=== PATIENT | male | born 1960 | race African-American/Black ===

== ENCOUNTER 2018-06-06 18:02 | Observation (INO) | payer BC ==
[2018-06-06 18:44] LABS: Hemoglobin 15.6 g/dL (14.0-18.0); Mean Corpuscular HGB CONC 32.9 g/dL (32.0-36.0); Mean Corpuscular Hemoglobin 28.5 pg (27.0-31.0); Mean Corpuscular Volume 86.6 fL (78.0-98.0); Mean Platelet Volume 7.5 fL (7.4-10.4); Platelet Count 220 thou/uL (130-400); RBC Distribution Width 12.4 % (11.5-14.5); Red Blood Cell (RBC) Count 5.46 mill/uL (4.70-6.10); White Blood Cell (WBC) Count 4.8 thou/uL (4.8-10.8)
[2018-06-06 19:02] LABS: Eosinophils 1 % (0-10); Lymphocytes 71 % (21-51); MDiff Complete? YES; Monocytes 2 % (0-10); Neutrophil 25 % (42-75); Platelet Morphology Comment Appears Adequate; Reactive Lymphocytes 1 % (0-10)
[2018-06-06 19:03] LABS: ALT (SGPT) 38 U/L (8-55); AST (SGOT) 23 U/L (5-34); Albumin 4.2 g/dL (3.5-5.0); Alkaline Phosphatase 63 U/L (40-150); Anion Gap 11 mmol/L (10-20); BUN (Urea Nitrogen) 17 mg/dL (8.4-25.7); Bilirubin, Total 0.5 mg/dL (0.2-1.2); Calc. Creatinine Clearance 0 mL/min (70-130); Calcium 9.7 mg/dL (7.8-10.44); Carbon Dioxide 29 mmol/L (22-29); Chloride 103 mmol/L (98-107); Estimated GFR-MDRD 71; Globulin 2.7 g/dL (2.4-3.5); Glucose 109 mg/dL (70-105); Potassium 3.7 mmol/L (3.5-5.1); Protein, Total 6.9 g/dL (6.0-8.3); Sodium 139 mmol/L (136-145)
--- NOTE | 2018-06-06 19:10 | RAD ---
CHEST ONE VIEW 06/06/18 HISTORY: Chest pain. COMPARISON: Radiograph 08/18/10. FINDINGS: The lungs are clear. No pneumothorax or effusion. The cardiac silhouette and mediastinal contours are within normal limits. IMPRESSION: No acute intrathoracic abnormality. New ACDF hardware incompletely evaluated from 2010. POS: HOME
[2018-06-06] MEDS ORDERED: Aspirin Chewable 81 MG TAB ONE (21:11)
[2018-06-06] MEDS ORDERED: Nitroglycerin 0.4 MG TAB 1 EACH ONE (21:11)
[2018-06-06] MEDS ORDERED: Acetaminophen 325 MG TAB ONE (21:32)
[2018-06-06 22:38] LABS: Troponin I 0.014 ng/mL (< 0.028)
[2018-06-07 00:15] VITALS: BMI 42.3
[2018-06-07] MEDS ORDERED: HYDROcodone/Acetaminophen 5/325 mg Tablet PO PRN (00:58)
[2018-06-07] MEDS ORDERED: Senokot S 8.6-50 MG TAB PO PRN (00:58)
[2018-06-07] MEDS ORDERED: Acetaminophen 325 MG TAB PO PRN (00:58)
[2018-06-07 01:31] LABS: Troponin I Less than 0.010 ng/mL (< 0.028)
[2018-06-07] MEDS ORDERED: Dextrose 50% Abboject 50 ML SYRINGE SLOW IVP PRN (01:43)
[2018-06-07] MEDS ORDERED: Dextrose 5% in Water 1,000 ML IV PRN (01:43)
[2018-06-07] MEDS ORDERED: HumaLOG 300 UNITS/3 ML VIAL SC PRN (01:43)
[2018-06-07 04:02] VITALS: BP 132/97; TEMP 98
[2018-06-07 04:18] LABS: Anion Gap 14 mmol/L (10-20); BUN (Urea Nitrogen) 16 mg/dL (8.4-25.7); Calc. Creatinine Clearance 128 mL/min (70-130); Calcium 9.2 mg/dL (7.8-10.44); Carbon Dioxide 23 mmol/L (22-29); Cardiac Risk 3.9 (Less than 4.5); Chloride 106 mmol/L (98-107); Cholesterol 185 mg/dl (< 200 Desired); Estimated GFR-MDRD 80; Glucose 176 mg/dL (70-105); HDL Cholesterol 47 mg/dL (>60 Neg Risk); LDL Cholesterol, Calculated 106 mg/dL; Potassium 3.5 mmol/L (3.5-5.1); Sodium 139 mmol/L (136-145); Triglycerides 159 mg/dL (Less than 150)
[2018-06-07 04:27] LABS: Troponin I Less than 0.010 ng/mL (< 0.028)
[2018-06-07 04:36] LABS: Thyroid Stimulating Hormone 2.489 uIU/mL (0.35-4.94)
[2018-06-07 04:41] LABS: Free T4 (Free Thyroxine) 0.93 ng/dL (0.70-1.48)
--- NOTE | 2018-06-07 05:07 | HP ---
PRIMARY CARE PROVIDER: Angely Blair PA-C. CHIEF COMPLAINT: Chest pain. HISTORY OF PRESENT ILLNESS: Mr. Ledezma is a very pleasant 57-year-old male who presented to the emergency room on 06/06/2018, with left-sided chest pain, diaphoresis, shortness of breath, and a headache. The patient reports that chest pain is a sharp shooting pain, substernal that started when he was trying to get his kids off the bus. He reports that he got very diaphoretic as he was getting off the bus and walking to the office. He reports that he had a heart catheterization in [place] several years ago, but is unsure of those results. The patient reports that he is under quite a bit of stress and this is similar to the episode that he had several years ago when he was also in a lot of stress. The patient has a pertinent past medical history of hypertension, diabetes, hyperlipidemia. He will be admitted to the observation unit for further risk stratification. PAST MEDICAL HISTORY: Diabetes, hypertension, hyperlipidemia. PAST SURGICAL HISTORY: Had an ACDF, has also had an appendectomy. PSYCHIATRIC HISTORY: None. SOCIAL HISTORY: The patient denies any alcohol or drug use. Denies any smoking history. He lives at home with his family. FAMILY HISTORY: The patient endorses significant family history of cardiac disease and diabetes. The patient is unsure of the exact diagnosis of the cardiac issues. REVIEW OF SYSTEMS: CONSTITUTIONAL: The patient denies chills, fever. EYES: Denies any eye pain or vision changes. ENT: Denies sore throat or rhinorrhea. CARDIOVASCULAR: Does report chest pain, diaphoresis. RESPIRATORY: Reports shortness of breath. Denies cough. GI: Denies abdominal pain, nausea, vomiting, constipation, or diarrhea. MUSCULOSKELETAL: Denies any injuries, trauma. SKIN: Denies any rashes or skin changes. NEUROLOGIC: Does endorse a headache. Denies any numbness, tingling. Does report that he has been" off-balance" lately. ENDOCRINE: Negative review of systems. Note, all other reviews of review of systems are negative unless mentioned in the HPI. PHYSICAL EXAMINATION: VITAL SIGNS: Blood pressure is 142/96, pulse is 67, respirations 13, temperature is 98.5. The patient is 95% on room air. CONSTITUTIONAL: The patient appears nontoxic. He is alert and oriented to person, place, and time. He is in no apparent distress. HEAD: Atraumatic and normocephalic. Eyes, pupils are equally round and reactive to light. Extraocular muscles are intact. ENT, mouth exam is normal. Mucous membranes are moist. NECK: Normal range of motion. Trachea is midline. RESPIRATORY: Chest breath sounds are clear. Chest movement is symmetrical. CARDIOVASCULAR: Heart regular rate and rhythm. Heart sounds are normal. ABDOMEN: Nontender on palpation. Bowel sounds are heard. BACK: Normal range of motion, normal inspection. No tenderness. EXTREMITIES: Upper extremity normal inspection. Radial pulses equal bilaterally. Lower extremity, normal inspection, normal range of motion. Pedal pulses equal bilaterally. No edema is noted. NEUROLOGIC: The patient is oriented to person, place, and time. Speech is normal. SKIN: Warm, dry and normal in color. ALLERGIES: NONE. CURRENT MEDICATIONS: Per ER system; 1. Trulicity q weekly 2. Amlodipine 5 mg daily. 3. Invokana 100 mg. 4. Metformin 500 mg p.o. b.i.d. 5. Lansoprazole 15 mg dose, unknown. Hydrochlorothiazide 25 mg p.o. q.a.m. 6. Tizanidine 4 mg p.r.n. 7. Synthroid 137 mcg daily. IMAGING: EKG in the emergency room shows normal sinus rhythm, beats per minute 79, prolonged QT. T-waves are normal. LABORATORY DATA: Pertinent lab results, troponin x2 undetectable. Sodium is 139, potassium 3.7, chloride 103, carbon dioxide is 29, gap is 11, BUN is 17, creatinine is 1.27, estimated GFR is 71, glucose 109, calcium is 9.7. Liver enzymes are unremarkable. White blood cell count is 4.8, hemoglobin is 15.6, hematocrit is 47.3, platelet count is 220. Chest x-ray shows no acute intrathoracic abnormality next. ASSESSMENT/PLAN: 1. Chest pain. We will obtain serial troponins. We will order a stress test. We will check lipids for further risk stratification. 2. Hypertension. We will continue home medications. We will trend. We add p.r.n. medications as needed. 3. Diabetes before break fast and at bedtime Accu-Cheks. We will restart home medications. We will trend. We will add p.r.n. sliding scale as needed. 4. Hyperlipidemia. Continue home medications. We will check lipids with the morning run. 5. Deep venous thrombosis, gastrointestinal prophylaxis will be started. 6. Hospital course is dependent on clinical findings. Job ID: [id number] [facility] CENTERVandana
[2018-06-07] MEDS ORDERED: Levothyroxine Sodium 125 MCG TAB PO SCH (06:00)
[2018-06-07 06:17] LABS: #Eosinphils 0.1 thou/uL (0.0-0.7); #Monocytes 0.4 thou/uL (0.11-0.59); #Neutrophils 1.9 thou/uL (1.40-6.50); %Basophils 0.6 % (0.0-1.0); %Eosinophils 2.7 % (0.0-10.0); %Lymphocytes 46.2 % (21.0-51.0); %Monocytes 8.2 % (0.0-10.0); %Neutrophils 42.3 % (42.0-75.0); Mean Corpuscular HGB CONC 32.3 g/dL (32.0-36.0); Mean Corpuscular Hemoglobin 28.8 pg (27.0-31.0); Mean Corpuscular Volume 89.3 fL (78.0-98.0); Mean Platelet Volume 7.5 fL (7.4-10.4); Platelet Count 201 thou/uL (130-400); RBC Distribution Width 12.5 % (11.5-14.5); Red Blood Cell (RBC) Count 4.87 mill/uL (4.70-6.10); White Blood Cell (WBC) Count 4.4 thou/uL (4.8-10.8)
[2018-06-07] MEDS ORDERED: Famotidine 20 MG TAB ONE (08:32)
[2018-06-07] MEDS ORDERED: Enoxaparin Sodium 40 MG/0.4 ML SYRINGE ONE (08:32)
[2018-06-07] MEDS ORDERED: Famotidine 20 MG TAB PO SCH (09:00)
[2018-06-07] MEDS ORDERED: DorzolamidE/Timolol 2%/0.5% Ophth Soln 10 ml Bottle EA EYE SCH (09:00)
[2018-06-07] MEDS ORDERED: Enoxaparin Sodium 40 MG/0.4 ML SYRINGE SC SCH (09:00)
[2018-06-07] MEDS ORDERED: Hydrochlorothiazide 25 MG TAB PO SCH (09:00)
[2018-06-07] MEDS ORDERED: Brimonidine Tartrate 0.2% Ophth Soln 5 ml Bottle EA EYE SCH (09:00)
--- NOTE | 2018-06-07 11:09 | NM ---
CARDIAC SPECT: HISTORY: Chest pain, hypertension, diabetes, dyslipidemia PROTOCOL: Single isotope, stress only. RADIOPHARMACEUTICAL: 31 mCi technetium 99m sestamibi injected intravenously STRESS: Exercise stress monitored and interpreted by [Fer], Nurse practitioner. FINDINGS: Homogeneous tracer distribution is seen in the myocardial segments on the poststress images. Gated SPECT LVEF: 56% Wall motion exam: Normal IMPRESSION: Normal poststress myocardial perfusion scan.
[2018-06-07] MEDS ORDERED: metFORMIN XR 500 MG TAB PO SCH (17:00)
[2018-06-07] MEDS ORDERED: Latanoprost 0.005% Ophth Soln 2.5 ml Bottle EA EYE SCH (21:00)
--- NOTE | 2018-06-08 07:07 | DIS ---
DATE OF ADMISSION: 06/06/2018 DATE OF DISCHARGE: 06/07/2018 ALLERGIES: NO KNOWN DRUG ALLERGIES. CHIEF COMPLAINT: Chest pain. FINAL DIAGNOSES: 1. Sharp substernal chest pain, with associated diaphoresis, resolved, nuclear stress test negative for reversible ischemia. 2. Type [address] Kidd. 3. Hypertension. 4. Hyperlipidemia. PROCEDURES PERFORMED: None. LABORATORY RESULTS: White blood cell count 4.4, hemoglobin 14, hematocrit 43.5, MCV 89.3, and platelet count was 201. Sodium 139, potassium 3.5, chloride 106, BUN 16, creatinine 1.15, estimated GFR 80, and glucose 176. Liver function tests within normal limits. Troponin was negative x3. Triglycerides 159, cholesterol 185, LDL 106, and HDL 47. Free T4 of 0.93, free T3 of 2.63, and TSH 2.4890. IMAGING RESULTS: Chest x-ray, no acute intrathoracic abnormality, new ACDF hardware incompletely evaluated from 2010. Cardiac SPECT revealed homogeneous tracer distribution in the myocardial segments on the post-stress images. Left ventricular ejection fraction noted at 56%, impression was normal post-stress myocardial perfusion scan. VITAL SIGNS: Blood pressure 132/97, O2 saturation is 94% on room air, pulse is 72, respiration 13, and temperature 98. HOSPITAL COURSE: The patient is a pleasant 57-year-old -[place] male with past medical history significant for hypertension, hyperlipidemia, and type [address] Dr[address] Kidd, who presented to the ER after experiencing acute onset of left-sided chest pain that occurred when he was picking his child up from the bus. He describes it as sharp and located on the left side of his chest. Associated symptoms included diaphoresis and shortness of breath. He presented to the ER for further workup and treatment. The patient revealed that he did have a left heart catheterization with Dr. Gama at some point in the last few years, but has not followed up regularly and does not know the results of those of that procedure. Given his risk factors, he was admitted for chest pain rule out. His initial EKG showed sinus rhythm and no acute ST or T-wave changes. His serial cardiac enzymes were negative. Nuclear stress test was performed and was negative for any reversible ischemia and showed normal EF. At the time of my interview, the patient's chest pain has completely resolved. Upon further interview with he and his , the patient has been under a large amount of stress at work lately and believes that some of his symptoms could be resulted to anxiety. In any case, his presenting symptoms have resolved, his stress test is negative and he has no complaints to me at this time. He denies any nausea, vomiting, further shortness of breath or further chest pain. PHYSICAL EXAMINATION: GENERAL: The patient is an obese -S[place]i male, resting comfortably in no acute distress. HEENT: Head is atraumatic and normocephalic. Mucous membranes are moist. NECK: No JVD. No carotid bruits. Trachea is midline. No lymphadenopathy. CV: S1 and S2. Regular rate and rhythm. No appreciable murmurs, rubs, or gallops. LUNGS: Regular respiratory rate and pattern. Clear to auscultation bilaterally. ABDOMEN: Positive bowel sounds. Soft, nontender, and obese. SKIN: Warm and dry. No rashes or discolorations. NEUROLOGIC: Cranial nerves 2 through 12 are intact and no focal deficits are noted. EXTREMITIES: Lower extremities are warm and well perfused. He has no edema. CONDITION AT DISCHARGE: Stable. DISCHARGE MEDICATIONS: 1. Acetaminophen 650 mg tablet 1 tablet p.o. q.6 hours p.r.n. 2. Brimonidine tartrate eyedrops 1 drop each eye t.i.d. 3. Invokana 300 mg tablet 1 daily. 4. Cosopt ophthalmic 1 drop each eye b.i.d. 5. Trulicity 1.5 mg subcu every 7 days. 6. Hydrochlorothiazide 25 mg daily. 7. Lansoprazole 30 mg tablet 1 tablet daily. 8. Levothyroxine 125 mcg tablet 1 tablet daily. 9. Metformin 1000 mg p.o. at bedtime. 10. Travatan Z 1 drop each eye at bedtime. New medication will be aspirin 81 mg daily given his diagnosis of diabetes mellitus. DISCHARGE DISPOSITION: Home. PLAN: I have encouraged the patient to follow up with his roll filler, Dr. Gama on a regular basis given his risk factors for coronary artery disease. At this time, I have no records available regarding the results of his heart catheterization, but in any case, ACS has been ruled out and his stress test is negative. I have talked to him at length on diet and exercise and risk factor modification. He will follow up with his customer relations consultant, primary care doctor, and roll filler. Job ID: [id number]
--- NOTE | 2018-06-08 14:22 | EKG ---
Test Reason : CP Blood Pressure : / mmHG Vent. Rate : 083 BPM Atrial Rate : 083 BPM P-R Int : 170 ms QRS Dur : 096 ms QT Int : 392 ms P-R-T Axes : 060 002 052 degrees QTc Int : 460 ms Normal sinus rhythm Normal ECG Confirmed by ABDELRAHMAN BOJORQUEZ DO ([id number]), editor managing newspaper MARCOS TEJADA ([id number]) on 06/08/2018 2:22:13 PM Referred By: Confirmed By:ABDELRAHMAN BOJORQUEZ DO
--- NOTE | 2018-06-08 14:22 | EKG ---
Test Reason : Blood Pressure : / mmHG Vent. Rate : 079 BPM Atrial Rate : 079 BPM P-R Int : 176 ms QRS Dur : 100 ms QT Int : 422 ms P-R-T Axes : 053 005 058 degrees QTc Int : 483 ms Normal sinus rhythm Prolonged QT Abnormal ECG Confirmed by ABDELRAHMAN BOJORQUEZ DO ([id number]), index editor MARCOS TEJADA ([id number]) on 06/08/2018 2:22:19 PM Referred By: Confirmed By:ABDELRAHMAN BOJORQUEZ DO
== END 2018-06-07 13:44 | disposition home or self-care (01) ==
LOC: ERS 18:02 → ERHOLD 23:00
PROVIDERS: ADMIT Internal Medicine; ATTEND Internal Medicine
DX: R07.2 Precordial pain (principal); E11.9 Type 2 diabetes mellitus without complications; I10 Essential (primary) hypertension; E78.5 Hyperlipidemia, unspecified; E66.9 Obesity, unspecified; Z68.41 Body mass index [BMI] 40.0-44.9, adult; Z79.899 Other long term (current) drug therapy; Z79.84 Long term (current) use of oral hypoglycemic drugs; Z98.890 Other specified postprocedural states
CPT/HCPCS: 36415; 71045; 78452; 80048; 80053; 80061; 84439; 84443; 84481; 84484; 85025; 93005; 93017; A9500; G0378; J1650

== ENCOUNTER 2019-04-17 12:27 | Outpatient (CLI) | payer BC ==
--- NOTE | 2019-04-17 14:31 | CT ---
EXAM: Brain CTWithout contrast: HISTORY: Headache COMPARISON: 02/21/2005 FINDINGS: No focal mass or midline shift. No intra or extra-axial hemorrhage. Sinuses and mastoids are clear of acute process. IMPRESSION: No mass or bleed or other significant acute intracranial process.
== END 2019-04-17 12:28 | disposition home or self-care (01) ==
LOC: SCSCT 12:27
PROVIDERS: ATTEND Physician Assistant
DX: G44.89 Other headache syndrome (principal)
CPT/HCPCS: 70450